=== PATIENT | male | born 1960 | race Caucasian/White ===

== ENCOUNTER 2018-03-22 16:42 | Inpatient (IN) | payer BC ==
[~2018-03-22] VITALS: Ht 165.1 cm; Wt 82.1 kg
[2018-03-22] MEDS ORDERED: NITROGLYCERIN 0.4MG TABLET SL SL PRN (17:45)
[2018-03-22] MEDS ORDERED: ASPIRIN 81MG TABLET PO ONE (17:45)
[2018-03-22 18:27] LABS: BASOPHILS % 0.9 % (0.0-2.0); EOSINOPHILS % 4.4 % (0.0-5.0); HEMATOCRIT. 41.6 % (42.0-52.0); HEMOGLOBIN. 14.4 g/dL (14.0-18.0); LYMPHOCYTES % 25.5 % (20.0-50.0); MEAN CORPUSCULAR HEMOGLOBIN 30.5 pg (28.0-32.0); MEAN CORPUSCULAR VOLUME 88.2 fL (80.0-94.0); MEAN PLATELET VOLUME 8.6 fl (7.4-10.4); NEUTROPHILS % 57.2 % (40.0-76.0); PLATELET 172 x1000/uL (130-400); RED BLOOD CELL COUNT 4.71 mill/uL (4.7-6.1)
[2018-03-22 18:31] LABS: CHLORIDE 101 mEq/L (98-107)
[2018-03-22] MEDS ORDERED: HYDROCODONE/ACETAMINOPHEN 5/325MG TABLET PO PRN (20:30)
[2018-03-22] MEDS ORDERED: CLONIDINE 0.1MG TABLET PO PRN (20:30)
[2018-03-22] MEDS ORDERED: LORAZEPAM 2MG/ML CPJ IV PRN (20:30)
[2018-03-22] MEDS ORDERED: GUAIFENESIN 200MG/10ML SUGAR FREE UDC PO PRN (20:30)
[2018-03-22] MEDS ORDERED: MAGNESIUM/ALUMINUM HYDROXIDE/SIMETHICONE 30ML UDC PO PRN (20:30)
[2018-03-22] MEDS ORDERED: MORPHINE SULFATE 4 MG/ML CPJ (NOT FOR IM USE) IV PRN (20:30)
[2018-03-22] MEDS ORDERED: ACETAMINOPHEN 325MG TABLET PO PRN (20:30)
[2018-03-22] MEDS ORDERED: IPRATROPIUM/ALBUTEROL 0.5-3(2.5)MG/3ML NEB INH PRN (20:30)
[2018-03-22] MEDS ORDERED: ONDANSETRON HCL 4MG/2ML INJ IV PRN (20:30)
[2018-03-22] MEDS ORDERED: DIPHENHYDRAMINE 50MG/ML VIAL IV PRN (20:30)
[2018-03-22 22:30] VITALS: BP 133/73
[2018-03-23] VITALS: BP 134/78
[2018-03-23] MEDS ORDERED: METF-816 PO (00:07)
[2018-03-23 00:09] LABS: CREATINE KINASE 189 IU/L (39-308)
[2018-03-23 00:10] LABS: CREATINE KINASE MB FRACTION 2.8 ng/mL (0.5-3.6)
[2018-03-23] MEDS ORDERED: DEXTROSE 50% WATER 50ML SYRINGE IV PRN (00:15)
[2018-03-23 04:00] VITALS: BP 131/78
[2018-03-23] MEDS: INSULIN LISPRO 100 UNITS/ML SUBCUT SCH ×2 (06:40→12:57)
[2018-03-23] MEDS: BLOOD SUGAR DIAGNOSTIC STRIP TEST SCH ×2 (06:40→11:59)
[2018-03-23 07:07] LABS: CHLORIDE 102 mEq/L (98-107)
[2018-03-23 07:23] LABS: HEMATOCRIT. 41.8 % (42.0-52.0); HEMOGLOBIN. 14.8 g/dL (14.0-18.0); MEAN CORPUSCULAR HEMOGLOBIN 31.5 pg (28.0-32.0); MEAN CORPUSCULAR VOLUME 89.1 fL (80.0-94.0); MEAN PLATELET VOLUME 8.9 fl (7.4-10.4); PLATELET 142 x1000/uL (130-400); RED BLOOD CELL COUNT 4.69 mill/uL (4.7-6.1); RED CELL DISTRIBUTION WIDTH 13.7 % (11.6-14.6)
[2018-03-23 07:29] LABS: CREATINE KINASE MB FRACTION 2.9 ng/mL (0.5-3.6); LDL CHOLESTEROL 119 mg/dL (5-100)
[2018-03-23 07:30] LABS: CREATINE KINASE 175 IU/L (39-308); T4 FREE 0.82 ng/dL (0.76-1.46)
[2018-03-23 07:31] LABS: HDL CHOLESTEROL 51 mg/dL (40-59)
[2018-03-23 07:45] VITALS: BP 130/81
[2018-03-23] MEDS ORDERED: REGADENOSON 0.4 MG/5 ML IV ONE ×2 (08:45→10:52)
[2018-03-23] MEDS ORDERED: ENOXAPARIN 40MG/0.4ML SYR SUBCUT SCH (09:00)
[2018-03-23] MEDS ORDERED: ASPIRIN 81MG TABLET PO SCH (09:00)
[2018-03-23] MEDS ORDERED: ASPIRIN 81MG EC TABLET PO SCH (09:00)
[2018-03-23 12:16] VITALS: BP 145/91
[2018-03-23 14:17] VITALS: BP 145/91
[2018-03-23 16:04] LABS: PLATELET ESTIMATE NORMAL
== END 2018-03-23 14:45 | disposition home or self-care (01) | DRG 392 ==
LOC: ER 18:18 → 5WST 19:47 → EDBEDREQ 19:52 → EDBEDREQTM 19:52 → ENRESERV 20:37
PROVIDERS: ADMIT Internal Medicine; ATTEND Internal Medicine
DX: K21.9 Gastro-esophageal reflux disease without esophagitis (principal); E11.65 Type 2 diabetes mellitus with hyperglycemia; E78.5 Hyperlipidemia, unspecified; I10 Essential (primary) hypertension; Z79.84 Long term (current) use of oral hypoglycemic drugs
CPT/HCPCS: 36415; 71045; 78452; 80053; 80061; 82550; 82553; 82962; 83036; 83880; 84439; 84443; 84484; 85025; 93005; 93017; 93306; 99285; A9500; J1650; J2785